=== PATIENT | male | born 1980 | race Caucasian/White ===

== ENCOUNTER → 2016-10-31 | Outpatient (CLI) | payer OTHER ==
--- NOTE | 2016-10-31 14:14 | Diagnostic Imaging Report ---
INDICATION: Flank pain. FINDINGS: Supine images of the abdomen reveal [id number] amount of stool throughout the colon. No transition point is seen to indicate an obstruction. There is no evidence of stone along the course of either ureter. Calcification in the right hemipelvis may be related to phlebolith or possible atherosclerosis. IMPRESSION: No acute abnormality is identified. Dictated by: Dictated on workstation # [id number]
== END ==
LOC: RAD 13:25
PROVIDERS: ATTEND Urology
DX: Z09 Encounter for follow-up examination after completed treatment for conditions other than malignant neoplasm (principal); Z87.442 Personal history of urinary calculi
CPT/HCPCS: 74000

== ENCOUNTER → 2016-10-31 | Outpatient (CLI) | payer OTHER ==
--- NOTE | 2016-10-31 15:58 | Diagnostic Imaging Report ---
PROCEDURE: CT abdomen and pelvis without contrast. TECHNIQUE: Multiple contiguous axial images were obtained through the abdomen and pelvis without the use of intravenous contrast. INDICATION: Lower back pain. Testicular pain. History of hernia and stomach surgery. COMPARISON: None. FINDINGS: Included views of the lung bases are clear. CT ABDOMEN: Small bowel loops are nondistended. Normal appendix is identified. 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 There is faint nonobstructive renal calculus within the inferior pole on the right (image 36, series 2). No ureteral calculi seen on either side. Additionally, there is no hydronephrosis or other evidence of obstruction. No renal mass type lesions are identified on this noncontrast exam. The liver, spleen, pancreas, and adrenal glands have an unremarkable noncontrast CT appearance. There is no loculated fluid collection free fluid or free air within the abdomen. No abnormal mesenteric or retroperitoneal adenopathy is seen. Bony structures show no acute abnormalities. CT PELVIS: Urinary bladder is unopacified and minimally distended. No calculi is seen within urinary bladder. There is no loculated fluid collection, free fluid or free air. No abnormal lymph nodes are seen. Bilateral hydroceles are present. Bony structures show no acute abnormalities. IMPRESSION: 1. Faint nonobstructive right renal calculi. 2. No ureteral calculi or evidence of obstruction on either side. 3. Bilateral hydroceles. Dictated by: Dictated on workstation # [id number]
== END ==
LOC: RAD 14:51
PROVIDERS: ATTEND Urology
DX: R10.84 Generalized abdominal pain (principal); N50.811 Right testicular pain
CPT/HCPCS: 74176

== ENCOUNTER 2016-11-01 13:40 | Outpatient (RCR) | payer OTHER ==
[2016-11-01 14:40] LABS: ANION GAP 8 MMOL/L (5-14); BLOOD UREA NITROGEN 6 MG/DL (7-18); BUN/CREATININE RATIO 8; CALCIUM 8.8 MG/DL (8.5-10.1); CARBON DIOXIDE 26 MMOL/L (21-32); CHLORIDE 107 MMOL/L (98-107); CREATININE SERUM 0.74 MG/DL (0.60-1.30); GFR ESTIMATED > 60; GLUCOSE 126 MG/DL (70-105); PHOSPHORUS 3.2 MG/DL (2.3-4.7); POTASSIUM 3.7 MMOL/L (3.6-5.0); SODIUM 141 MMOL/L (135-145); URIC ACID 5.1 MG/DL (2.6-7.2)
[2016-11-02 07:50] LABS: CALCIUM PARA THYROID HORMONE 9.3 mg/dL (8.5-10.5)
[2016-11-07 22:38] LABS: STONE RISK AMMONIUM 41 mEq/24hr (14-62); STONE RISK BRUSHITE 5.61 (< 2.00); STONE RISK CA OXALATE 3.69 (< 2.00); STONE RISK CALCIUM 424 mg/day (< 250); STONE RISK CITRATE 1007 mg/day (> 320); STONE RISK CREATININE 2076 mg/day (800-2000); STONE RISK MAGNESIUM 102 mg/day (> 60); STONE RISK OXALATE 46 mg/day (< 45); STONE RISK PH 6.8 (5.5-7.0); STONE RISK PHOSPHOROUS 787 mg/day (< 1100); STONE RISK POTASSIUM 36 mEq/24hr (19-135); STONE RISK SODIUM 146 mEq/24hr (< 200); STONE RISK SODIUM URATES 2.32 (< 2.00); STONE RISK STRUVITE 6.82 (< 75.00); STONE RISK SULFITE 8 mmol/day (< 30); STONE RISK TOTAL VOLUME 1.91 L/day (> 2.00); STONE RISK URIC ACID 676 mg/day (< 700); STONE RISK URIC ACID SAT 0.28 (< 2.00)
== END 2017-01-30 | disposition home or self-care (01) ==
LOC: LAB 13:40
PROVIDERS: ATTEND Urology
DX: N20.0 Calculus of kidney (principal)
CPT/HCPCS: 36415; 80048; 82140; 82340; 82507; 82570; 83735; 83945; 83970; 83986; 84100; 84105; 84133; 84300; 84392; 84550; 84560